=== PATIENT | born 2000 ===

== ENCOUNTER 2025-04-04 14:03 | Outpatient (REF) | payer MEDICAID, SELFPAY ==
--- OUTSIDE RECORDS SUMMARY | 2025-04-04 14:09 | XMS_ITS | Clinical Summary ---
Author Organization [employer] Address [address] [place] [address] Care Team Providers Care Thoracic Surgeon Name Role Phone Alivia Boateng Primary Care Provider [phone] Allergies No known active allergies Medications estradiol (Vagifem) 10 MCG tablet vaginal tablet Use 1 tab as needed twice weekly 8 tablet 11 04/02/20 25 Active Testosterone Cypionate 200 MG/ML solutionIndicati ons:Low testosterone 0.3mL once weekly subcutaneously 10 mL 1 04/02/20 25 Active Needle, Disp, (BD Disp [place]) 25G X 5/8 miscIndications: Low testosterone Use to inject testosterone weekly 12 each 3 04/02/20 25 Active Needle, Disp, (BD Disp [place]) 18G X 1-1/2 miscIndications: Low testosterone Use to draw up testosterone weekly 12 each 3 04/02/20 25 Active doxycycline (Vibra-Tabs) 100 MG tabletIndication s:Acne vulgaris Take once daily with food. Take with a full glass of water and do not lie down for at least 30 minutes after. 28 tablet 2 04/02/20 25 Active tretinoin (Retin-A) 0.025 % creamIndications :Acne vulgaris Apply topically at bedtime. 45 g 2 04/02/20 25 026 Active Alcohol Swabs (Alcohol Prep) padsIndications: Low testosterone 100 each if needed (injecting medication). Use to clean skin before injecting or fingerstick 100 each 11 04/02/20 25 Active Active Problems No known active problems Encounters Date Type Department Care Team Description 04/02/2025 1:30 PM EDT Office Visit [facility] [address] [place] [id number] Alivia Boateng ANP Healthcare maintenance (Primary Dx); Hyperlipidemia, unspecified hyperlipidemia type; Elevated hemoglobin A1c; Low testosterone; Acne vulgaris; Need for hepatitis B screening test; Screening examination for STI; Ingrowing right great toenail; Depression, unspecified depression type; Dietary counseling; Exercise counseling 04/02/2025 Travel 03/26/2025 Travel 03/25/2025 Patient Outreach [facility] [address] [place] [id number] Alivia Boateng ANP Pre-visit Planning (Pre-visit planning - LVM ) 03/04/2025 Telephone [facility] [address] [place] [address] Salbador Ambrosio MD New Patient from Last 3 Months Social History Tobacco Use Types Packs/Day Years Used Date Smoking Tobacco: Never Smokeless Tobacco: Never Tobacco Cessation:Counseling Given: Not Answered Alcohol Use Standard Drinks/Week Comments Never 0 (1 standard drink = 0.6 oz pur e alcohol) Housing Stability Answer Date Recorded What is your housing situation today? I have cora sheets 04/02/[address] you li ve. Do you have problems with any of the following? None of the above 04/02/2025 Food Insecurity Answer Date Recorded Within the past 12 months, y ou worried that your food would run out before you got money to buy more: Never True 04/02/2025 Within the past 12 months,th e food you bought just didn't last and you didn't have enough money to get more: Never True 02/2025 Transportation Answer Date Recorded In the past 12 months, has l ack of transportation kept you from medical appts, meetings, work or from getting things needed for daily living? No 04/02/2025 Utilities Answer Date Recorded In the past 12 months, has t he electric, gas, oil or water company threatened to shut off services in your home? No 04/02/2025 Depression Answer Date Recorded Patient Health Questionnaire-2 Score 4 04/02/2025 Internet Access Answer Date Recorded Internet Access Q1 Yes 04/02/2025 Internet Access Q2 Not on file 04/02/2025 Comments Unknown Sex and Gender Information Value Date Recorded Sex Assigned at Choose not to disclose 02/2025 1:25 PM EDT Legal Sex Unknown 04/02/2025 1:30 PM EDT Gender Identity Choose not to disclose 1:25 PM EDT Sexual Orientation Choose not to disclose 2024 1:25 PM EDT Last Filed Vital Signs Vital Sign Reading Time Taken Comments Blood Pressure 110/70 04/02/2025 1:38 PM EDT Pulse 69 04/02/2025 1:38 PM EDT Temperature - - Respiratory Rate 16 04/02/2025 1:38 PM EDT Oxygen Saturation - - Inhaled Oxygen Concentration - - Weight 79.4 kg (175 lb) 04/02/2025 1:38 PM EDT Height 157.5 cm (5' 2 ) 04/02/2025 1:38 PM EDT Body Mass Index 32.01 04/02/2025 1:38 PM EDT Plan of Treatment Health Maintenance Due Date Last Done Comments Chlamydia and Gonorrhea Screening 2002 HIV Screening 2002 Family Planning (PISQ) 2017 HPV Vaccines (1 - 3-dose series) 2017 Meningococcal B Vaccine (1 o f 2 - Standard) 2018 Hepatitis C Screening 2020 Hepatitis B Vaccines (1 of 3 - 19+ 3-dose series) 2021 Pap Smear 2023 COVID-19 Vaccine ( - 2023-2 5 season) 2024 Influenza Vaccine (#1) 2025 Alcohol/Substance Use Screening 04/02/2026 04/02/2025 Depression Screening 04/02/2026 04/02/2025, 04/02/2025 Disability Screening 04/02/2026 04/02/2025 SDOH Screening 04/02/2026 04/02/2025 Tobacco Screening 04/02/2026 04/02/2025 DTaP/Tdap/Td Vaccines (2 - T d or Tdap) 02/14/2035 02/14/2025 Zoster Vaccines (1 of 2) 2052 RSV Patients and Patients Aged 60 years or older (1 - 1-dose 75+ series) 2077 HIB Vaccines Aged Out No longer eligi ble based on patient's age to complete this topic Hepatitis A Vaccines Aged Out No long er eligible based on patient's age to complete this topic IPV Vaccines Aged Out No longer eligi ble based on patient's age to complete this topic Meningococcal Vaccine Aged Out No deanna kim eligible based on patient's age to complete this topic Pneumococcal Vaccine: Pediatrics (0 to 5 Years) and At-Risk Patients (6 to 49) Years Aged Out No longer eligible b ased on patient's age to complete this topic RSV under 20 months Aged Out No longe r eligible based on patient's age to complete this topic Rotavirus Vaccines Aged Out No longer eligible based on patient's age to complete this topic Insurance [employer] Care Teams Thoracic Surgeon Relationship Specialty Start Date End Date Alivia Boateng ANP [address] [place] [address] PCP - General Family Medicine 04/02/25
[2025-04-04 15:07] LABS: MANUAL DIFF FLAG NO
[2025-04-04 15:09] LABS: Hematocrit 50.0 %; Hemoglobin 16.9 g/dl; Imm Gran Abs Auto 0.02 X10*3/uL (0.00-0.03); Imm Gran Pct Auto 0.3 % (0.0-0.4); Lymphocytes Absolute Auto 2.6 X10*3/uL; Mean Corpuscular HGB Conc 33.8 g/dl; Mean Corpuscular Hemoglobin 28.2 pg; Mean Corpuscular Volume 83.5 fL; NRBC Abs Auto 0.000 X10*3/uL (0.0-0.012); NRBC Pct Auto 0.0 /100WBC (0.0-0.2); Platelet Count 241 X10*3/uL; Red Blood Count 5.99 X10*6/uL; White Blood Count 7.1 X10*3/uL
[2025-04-04 15:20] LABS: Alanine Aminotransferase 25 U/L; Albumin Level 5.2 g/dL; Alkaline Phosphatase 64 U/L; Anion Gap 15; Aspartate Amino Transferase 24 U/L; Blood Urea Nitrogen 9 mg/dL; Calcium 9.7 mg/dL; Carbon Dioxide 25 mmol/L; Chloride 106 mmol/L; Cholesterol 194 mg/dL; Estimated Glomerular Filt Rate > 60; HDL Cholesterol 42 mg/dL; Potassium 3.8 mmol/L; Sodium 142 mmol/L; Total Protein 8.3 g/dL; Triglycerides 129 mg/dL
[2025-04-04 17:31] LABS: Hemoglobin A1C 145.8428 umol/L; Total Hemoglobin (HGBA1C) 4321.7471 umol/L
[2025-04-06 08:09] LABS: HBS Num1 260.95 mIU/mL; HBc Num1 0.05 S/CO; HBsAGNum1 0.44 S/CO; HIV Num 1 0.05 S/CO; Hepatitis B Surface Antigen Negative; ~HepC Num1 0.12 S/CO; ~Hepatitis B Surface Antibody REACTIVE; ~Hepatitis C Antibody Nonreactive (Nonreactive)
[2025-04-11 07:13] LABS: Testosterone, Free 158.6 pg/mL (see note)
== END 2025-04-04 14:04 | disposition home or self-care (01) ==
LOC: HO.HMGCLDS 14:03
PROVIDERS: PCP Nurse Practitioner Primary Care; Visit Provider Nurse Practitioner Primary Care
DX: Z11.59 Encounter for screening for other viral diseases (principal); Z11.3 Encounter for screening for infections with a predominantly sexual mode of transmission; Z11.4 Encounter for screening for human immunodeficiency virus [HIV]; R79.89 Other specified abnormal findings of blood chemistry; R73.09 Other abnormal glucose; E78.5 Hyperlipidemia, unspecified
CPT/HCPCS: 36415; 80053; 80061; 83036; 84402; 84403; 85025; 86704; 86706; 86803; 87340; 87389